=== PATIENT | male | born 1955 | race Caucasian/White ===

== ENCOUNTER 2021-07-26 16:00 | Outpatient (REF) | payer MEDICARE, OTHER, SELFPAY ==
--- NOTE | ~2021-07-26 | US_ITS ---
EXAMINATION: US RETROPERITONEAL LIMITED (RENAL ONLY) CLINICAL INFORMATION: Personal history of urinary calculi. COMPARISON: Renal ultrasound 11/27/2018 and 12/24/2017. TECHNIQUE: Real-time imaging of the kidneys. FINDINGS: RIGHT KIDNEY: 12.0 x 6.0 x 5.0 cm (SAG x AP x TRV). The kidney is normal in size, contour, and echogenicity. Renal cortical thickness is normal. No renal calculi or hydronephrosis. Mid pole simple cyst measures 1.8 cm in greatest dimension, no further imaging recommended. LEFT KIDNEY: 11.4 x 4.0 x 6.0 cm (SAG x AP x TRV). The kidney is normal in size, contour, and echogenicity. Renal cortical thickness is normal. No calculi or focal parenchymal lesions. No hydronephrosis. US/US renal BI IMPRESSION: No renal calculi are appreciated. Simple cyst right kidney, no further imaging follow-up recommended.
== END 2021-07-26 16:01 | disposition home or self-care (01) ==
LOC: HO.US 16:00
PROVIDERS: PCP Internal Medicine; Visit Provider Urology
DX: Z87.442 Personal history of urinary calculi (principal)
CPT/HCPCS: 76775

== ENCOUNTER 2022-02-02 14:26 | Outpatient (AMB) | payer MEDICARE, OTHER, SELFPAY ==
--- NOTE | 2022-02-02 10:56 | MHC.OFFVIS ---
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 He is seen for the following urologic conditions - lower urinary tract symptoms - renal cyst Lower urinary tract symptoms Currently on terazosin 5 mg Does notice some weakness of stream toward the end of the day Low PVR Prior medications include Flomax PSA 06/23 1.9 Plan repeat PSA and bladder ultrasound Trial 10 mg terazosin Renal cyst Prior stable ultrasound 1.9 [facility] Medical History History of renal calculi Surgical History History of cholecystectomy History of lithotripsy Review of Systems Const Denies chills and Denies fever(s) Card Reports no additional complaints and Denies syncope Resp Denies cough GI Denies abdominal pain and Denies heartburn Reports as per HPI and Denies change in libido Neuro Denies syncope Psych Denies change in libido Endo Denies change in libido Physical Exam Const General: cooperative, healthy appearing, comfortable and no acute distress Orientation/consciousness: patient oriented x3 HEENT Face and sinus: Yes normal facial exam Mouth: moist mucous membranes Neck Neck: Yes normal visual inspection, Yes full ROM and Yes trachea midline Chest Chest palpation & inspection: normal inspection of the chest Resp Effort & Inspection: normal respiratory effort, able to speak in complete sentences and no respiratory distress GI Inspection: Yes normal to inspection Back/Spine/Pelvis Cervical Spine: normal cervical lordosis Thoracic/Lumbar Spine: thoracic and lumbar spine normal to inspection Skin General skin exam: no rashes or lesions noted Neuro General: patient oriented x3, gait normal, tone normal and moves all extremities Extrem General: Yes normal to inspection and Yes capillary refill normal Results AMB Urinalysis, Automated UA Leukoctes 0 Raoul/uL Last Edit by KRISTIAN Saleem on 02/02/22 14:43 UA Nitrite Negative Last Edit by KRISTIAN Saleem on 02/02/22 14:43 UA Urobilinogen 0.2 mg/dL Last Edit by Isabel Contreras, RMA on 02/02/22 14:43 UA Protein 0 mg/dL Last Edit by Isabel Contreras, A on 02/02/22 14:43 UA pH 6.0 Last Edit by Isabel Contreras, RMA on 02/02/22 14:43 UA Blood 0 Bob/uL Last Edit by Isabel Contreras, RMA on 02/02/22 14:43 UA Specific [place] 1.025 Last Edit by Isabel Contreras, RMA on 02/02/22 14:43 UA Ketone Negative Last Edit by Isabel Contreras, RMA on 02/02/22 14:43 UA Bilirubin 0 mg/dL Last Edit by Isabel Contreras, RMA on 02/02/22 14:43 UA Glucose 0 mg/dL Last Edit by Isabel Contreras, A on 02/02/22 14:43 Results Reviewed Results Reviewed: Laboratory Last Values Urine pH (Auto) 6.0 02/02/22 14:32 Specific [place] (Auto) 1.025 02/02/22 14:32 Urine Protein (Auto) 0 mg/dL 02/02/22 14:32 Glucose (UA)(Auto) 0 mg/dL 02/02/22 14:32 Urine Ketones (Auto) Negative 02/02/22 14:32 Urine Blood (Auto) 0 Bob/uL 02/02/22 14:32 Urine Nitrite (Auto) Negative 02/02/22 14:32 Urine Bilirubin (Auto) 0 mg/dL 02/02/22 14:32 Urine Urobilinogen (Auto) 0.2 mg/dL 02/02/22 14:32 Leukocyte Esterase (Auto) 0 Raoul/uL 02/02/22 14:32 Assessment & Plan Assessment & Plan (1) Bladder outlet obstruction: Code(s): N32.0 - Bladder-neck obstruction (2) Renal cyst: Code(s): N28.1 - Cyst of kidney, acquired Plan 12m f/u Orders: Orders US renal BI 1 Year N28.1 - Cyst of kidney, acquired AMB Urinalysis Automated 02/02/22 Z13.9 - Encounter for screening, unspecified Medications: New terazosin 5 mg PO BEDTIME 90 caps 3RF 90 days N32.0 - Bladder-neck obstruction Patient Instructions: Imaging studies, laboratory and physical exam results were discussed and reviewed in detail. No major barriers to patient understanding were identified. An opportunity to ask questions regarding the treatment plan was provided. All questions were answered. The patient expressed understanding and agreement with the above treatment plan. The patient is aware they should contact our office by phone for worsening of their current condition or the appearance of new urologic symptoms. Compliance is encouraged with any medications and followup testing that is ordered. It is a privilege to participate in the urologic care of your patient. If you have any questions or concerns regarding treatment for the above conditions, or other urologic issues, please do not hesitate to contact me. The office telephone contact is [phone]. This note is constructed using voice recognition software. While every effort has been made to ensure accuracy stamp clerk errors may have been included. Yours sincerely, Dr Dominik Chambers MD, [facility] - Urology Providers of Expert, Compassionate Care for the Genitourinary System Coding Level of Care Code Est Pt Level 4 (95726) Diagnoses Bladder outlet obstruction N32.0 Renal cyst N28.1
== END 2022-02-02 14:53 | disposition home or self-care (01) ==
LOC: HO.HUSH 14:26
PROVIDERS: PCP Internal Medicine; Visit Provider Urology
DX: N32.0 Bladder-neck obstruction (principal); N28.1 Cyst of kidney, acquired
CPT/HCPCS: 99499

== ENCOUNTER 2023-01-25 14:53 | Outpatient (REF) | payer MEDICARE, OTHER, SELFPAY ==
--- NOTE | ~2023-01-25 | US_ITS ---
EXAMINATION: US RETROPERITONEAL LIMITED (RENAL ONLY) CLINICAL INFORMATION: Cyst of kidney, acquired. COMPARISON: Renal ultrasound 07/26/2021 and 11/27/2018. X-ray KUB 11/10/2014. TECHNIQUE: Real-time imaging of the kidneys. FINDINGS: RIGHT KIDNEY: 12.4 x 5.1 x 6.6 cm (SAG x AP x TRV). The kidney is normal in size, contour, and echogenicity. Renal cortical thickness is normal. No calculi or focal parenchymal lesions. No hydronephrosis. LEFT KIDNEY: 10.5 x 5.1 x 5.2 cm (SAG x AP x TRV). The kidney is normal in size, contour, and echogenicity. Renal cortical thickness is normal. No calculi or focal parenchymal lesions. No hydronephrosis. US/US renal BI IMPRESSION: No cystic focus right kidney on the current study. Limited imaging due to body habitus. No focal abnormality..
== END 2023-01-25 14:54 | disposition home or self-care (01) ==
LOC: HO.US 14:53
PROVIDERS: PCP Internal Medicine; Visit Provider Urology
DX: N28.1 Cyst of kidney, acquired (principal)
CPT/HCPCS: 76775

== ENCOUNTER 2023-03-12 13:01 | Outpatient (AMB) | payer MEDICARE, OTHER, SELFPAY ==
--- NOTE | 2023-03-12 13:10 | A.OFFVIS_ITS ---
Intake Intake Visit Reasons: 1Y US(set) Intake Note: Patient is present for Follow Up Ultrasound Urology Med: Terazosin, Tamsulosin Antibiotic Allergy: None Blood Thinner: Apixaban(Eliquis) Pharmacy: [facility] Allergies No Known Allergies [No Known Allergies*] Allergy (Verified 03/12/23 13:10) Medication List - Last Reconciled 03/12/23 by Dominik Chambers MD apixaban 5 mg PO BID chlorhexidine gluconate 0.12% mL PO DIRECTED metoprolol succinate ER 100 mg PO DAILY tamsulosin 0.8 mg (2 x 0.4 mg) PO BEDTIME 30 days terazosin 5 mg PO BEDTIME 90 days terazosin 10 mg PO BEDTIME 30 days HPI HPI Comments History of Present Illness Details Arvin is a pleasant male. He is seen for the following urologic conditions - lower urinary tract symptoms - renal cyst Lower urinary tract symptoms Currently on terazosin 5 mg Does notice some weakness of stream toward the end of the day Low PVR Prior medications include Flomax PSA 06/23 1.9 Plan repeat PSA and bladder ultrasound Trial 10 mg terazosin Renal cyst Prior stable ultrasound 1.9 [facility] Medical History History of renal calculi Surgical History History of cholecystectomy History of lithotripsy Review of Systems Const Denies chills and Denies fever(s) Card Reports no additional complaints and Denies syncope Resp Denies cough GI Denies abdominal pain and Denies heartburn Reports as per HPI and Denies change in libido Neuro Denies syncope Psych Denies change in libido Endo Denies change in libido Physical Exam Const General: cooperative, healthy appearing, comfortable and no acute distress Orientation/consciousness: patient oriented x3 HEENT Face and sinus: Yes normal facial exam Mouth: moist mucous membranes Neck Neck: Yes normal visual inspection, Yes full ROM and Yes trachea midline Chest Chest palpation & inspection: normal inspection of the chest Resp Effort & Inspection: normal respiratory effort, able to speak in complete sentences and no respiratory distress GI Inspection: Yes normal to inspection Back/Spine/Pelvis Cervical Spine: normal cervical lordosis Thoracic/Lumbar Spine: thoracic and lumbar spine normal to inspection Skin General skin exam: no rashes or lesions noted Neuro General: patient oriented x3, gait normal, tone normal and moves all extremities Extrem General: Yes normal to inspection and Yes capillary refill normal Assessment & Plan Assessment & Plan (1) Bladder outlet obstruction: Code(s): N32.0 - Bladder-neck obstruction Plan Six month follow-up ultrasound bladder with PSA Orders: Orders Prostate Specific Antigen 6 Months N32.0 - Bladder-neck obstruction US bladder Today N32.0 - Bladder-neck obstruction, R39.12 - Poor urinary stream Medications: New terazosin 10 mg PO BEDTIME 30 days 30 caps 0RF N13.8 - Other obstructive and reflux uropathy, N32.0 - Bladder-neck obstruction, N40.1 - Benign prostatic hyperplasia with lower urinary tract symptoms Discontinued tamsulosin Discontinued Reason: Patient no longer taking 0.8 mg (2 x 0.4 mg) PO BEDTIME 30 days 60 caps 6RF Patient Instructions: Imaging studies, laboratory and physical exam results were discussed and reviewed in detail. No major barriers to patient understanding were identified. An opportunity to ask questions regarding the treatment plan was provided. All questions were answered. The patient expressed understanding and agreement with the above treatment plan. The patient is aware they should contact our office by phone for worsening of their current condition or the appearance of new urologic symptoms. Compliance is encouraged with any medications and followup testing that is ordered. It is a privilege to participate in the urologic care of your patient. If you have any questions or concerns regarding treatment for the above conditions, or other urologic issues, please do not hesitate to contact me. The office telephone contact is [phone]. This note is constructed using voice recognition software. While every effort h as been made to ensure accuracy dining service supervisor errors may have been included. Yours sincerely, Dr Dominik Chambers MD, [facility] - Urology Providers of Expert, Compassionate Care for the Genitourinary System Coding Level of Care Code Tele Est Pt Level 4 (31518) Diagnoses Bladder outlet obstruction N32.0
== END 2023-03-12 13:43 | disposition home or self-care (01) ==
PROVIDERS: Visit Provider Urology
DX: N32.0 Bladder-neck obstruction (principal)
CPT/HCPCS: 99214

== ENCOUNTER → 2023-03-12 13:01 | Outpatient (BNVA) | payer MEDICARE, OTHER, SELFPAY | PROVIDERS: Visit Provider Urology ==

== ENCOUNTER 2023-09-02 10:39 | Outpatient (REF) | payer MEDICARE, OTHER, SELFPAY ==
--- NOTE | ~2023-09-02 | US_ITS ---
EXAMINATION: US PELVIS LIMITED (BLADDER) CLINICAL INFORMATION: Poor urinary stream. COMPARISON: Renal ultrasound 01/25/2023 and 07/26/2021. X-ray abdomen KUB 11/10/2014. TECHNIQUE: Real-time imaging of the bladder. Limited visualization due to bowel gas. FINDINGS: BLADDER: Well distended. Bilateral ureteral jets are demonstrated. Prevoid bladder volume is 531 mL. Postvoid bladder volume is 506 mL. Mild diffuse irregularity of the bladder wall with possible trabeculation. ADDITIONAL FINDINGS: Enlarged prostate with volume 66.6 mL. A 4.2 x 2.2 x 4.5 cm bladder diverticulum. Small right diverticulum measures 0.7 x 0.5 x 0.7 cm. US/US bladder IMPRESSION: 1. Enlarged prostate with volume 66.6 mL. 2. Mild diffuse irregularity of the bladder wall with possible trabeculation. 3. A 4.2 x 2.2 x 4.5 cm bladder diverticulum. Small right diverticulum measures 0.7 x 0.5 x 0.7 cm.
== END 2023-09-02 10:40 | disposition home or self-care (01) ==
LOC: HO.US 10:39
PROVIDERS: PCP Internal Medicine; Visit Provider Urology
DX: R39.12 Poor urinary stream (principal); N32.0 Bladder-neck obstruction
CPT/HCPCS: 76857

== ENCOUNTER 2023-09-09 10:09 | Outpatient (REF) | payer MEDICARE, OTHER, SELFPAY | END 2023-09-09 10:10 | disposition home or self-care (01) | LOC: HO.WFDLDS 10:09 | PROVIDERS: Visit Provider Urology | DX: N32.0 Bladder-neck obstruction (principal); Z12.5 Encounter for screening for malignant neoplasm of prostate | CPT/HCPCS: 36415; 84153 ==

== ENCOUNTER 2023-09-11 14:33 | Outpatient (AMB) | payer MEDICARE, OTHER, SELFPAY ==
--- NOTE | 2023-09-11 14:35 | A.OFFVIS_ITS ---
Intake Intake Visit Reasons: 6M PSA/US(set) Intake Note: Patient is Present for Follow Up PSA US Urology Medication: Terazosin Antibiotic Allergies: None Blood Thinners:Eliquis Allergies No Known Allergies [No Known Allergies*] Allergy (Verified 03/12/23 13:10) HPI HPI Comments History of Present Illness Details Arvin is a pleasant male. He is seen for the following urologic conditions - lower urinary tract symptoms - bladder dysfunction - renal cyst Telemedicine Evaluation 15 min Consultation [employer] Video attempted Discussed results Has bladder diverticula with incomplete emptying Has noticed improvement on terazosin 10 mg Suggest double voiding Six-month follow-up PVR in office May need outlet procedure with opening of a diverticulum surgically at some point Lower urinary tract symptoms Currently on terazosin 10 mg Does notice some weakness of stream toward the end of the day Low PVR Prior medications include Flomax PSA 06/23 1.9, 09/28 1.4 Imaging - 08/28 Bladder US diverticular with incomplete emptying Renal cyst Prior stable ultrasound 1.9 PFSH Medical History History of renal calculi Surgical History History of cholecystectomy History of lithotripsy Review of Systems Const All systems reviewed & are unremarkable except as noted in HPI and below Reports no additional complaints Resp Reports no additional complaints GI Reports no additional complaints Reports as per HPI Musc Reports no additional complaints Physical Exam Telemedicine evaluation Appropriate responses Regular breathing rate and rhythm HEENT Head: Yes normal to inspection Ears: hearing grossly normal bilaterally Eyes General: appearance normal, both eyes and all related structures Neck Neck: Yes normal visual inspection Chest Chest palpation & inspection: normal inspection of the chest Resp Effort & Inspection: normal respiratory effort and able to speak in complete sentences Assessment & Plan Assessment & Plan (1) Bladder outlet obstruction: Code(s): N32.0 - Bladder-neck obstruction (2) Renal cyst: Code(s): N28.1 - Cyst of kidney, acquired Plan Six-month follow-up PVR orifice Medications: Refilled terazosin 10 mg PO BEDTIME 90 days 90 caps 1RF N13.8 - Other obstructive and reflux uropathy, N32.0 - Bladder-neck obstruction, N40.1 - Benign prostatic hyperplasia with lower urinary tract symptoms Patient Instructions: Imaging studies, laboratory and physical exam results were discussed and reviewed in detail. No major barriers to patient understanding were identified. An opportunity to ask questions regarding the treatment plan was provided. All questions were answered. The patient expressed understanding and agreement with the above treatment plan. The patient is aware they should contact our office by phone for worsening of their current condition or the appearance of new urologic symptoms. Compliance is encouraged with any medications and followup testing that is ordered. It is a privilege to participate in the urologic care of your patient. If you have any questions or concerns regarding treatment for the above conditions, or other urologic issues, please do not hesitate to contact me. The office telephone contact is [phone]. This note is constructed using voice recognition software. While every effort has been made to ensure accuracy secondary social studies teacher errors may have been included. Yours sincerely, Dr Dominik Chambers MD, [facility] - Urology Providers of Expert, Compassionate Care for the Genitourinary System Telehealth Telehealth Location of provider rendering services: practice address Location of patient: address on file Patient Identification confirmed using: Name, : Yes Telehealth method: video Patient verbally consented to treatment: Yes Patient verbally consented to billing insurance company: Yes Patient informed of any privacy concerns related to visit: Yes Coding Level of Care Code Tele Est Pt Level 4 (64026) Diagnoses Bladder outlet obstruction N32.0 Renal cyst N28.1
== END 2023-09-11 15:23 | disposition home or self-care (01) ==
LOC: HO.HUSH 14:33
PROVIDERS: PCP Internal Medicine; Visit Provider Urology
DX: N32.0 Bladder-neck obstruction (principal); N28.1 Cyst of kidney, acquired
CPT/HCPCS: 99214

== ENCOUNTER → 2023-09-11 14:33 | Outpatient (BNVA) | payer MEDICARE, OTHER, SELFPAY | PROVIDERS: PCP Internal Medicine; Visit Provider Urology ==

== ENCOUNTER 2024-03-17 13:42 | Outpatient (AMB) | payer MEDICARE, OTHER, SELFPAY ==
--- NOTE | 2024-03-17 13:46 | MHC.OFFVIS ---
Intake Visit Reasons: 6M Follow Up-PVR Intake Note: Patient presents to the office today for a 6 month follow up/PVR Urology Medication: Terazosin Antibiotic Allergies: None Blood Thinners:Eliquis PVR:29mL Allergies No Known Allergies [No Known Allergies*] Allergy (Verified 03/17/24 13:46) Medication List - Last Reconciled 03/17/24 by Dominik Chambers MD apixaban 5 mg PO BID chlorhexidine gluconate 0.12% mL PO DIRECTED metoprolol succinate ER 100 mg PO DAILY terazosin 5 mg PO BEDTIME 90 days terazosin 10 mg PO BEDTIME 90 days HPI Comments Details: Arvin is a pleasant male. He is seen for the following urologic conditions - lower urinary tract symptoms - bladder dysfunction - renal cyst Stable on current medications Bladder diverticula with incomplete emptying Has noticed improvement on terazosin 10 mg with double voiding Here for six-month follow-up PVR PVR 30 cc Remain in surveillance Lower urinary tract symptoms Currently on terazosin 10 mg Does notice some weakness of stream toward the end of the day Low PVR Prior medications include Flomax PSA 06/23 1.9, 09/28 1.4 Imaging - 08/28 Bladder US diverticular with incomplete emptying Renal cyst Prior stable ultrasound 1.9 PFSH Medical History History of renal calculi Surgical History History of lithotripsy History of cholecystectomy Review of Systems Const Denies chills and Denies fever(s) Card Reports no additional complaints and Denies syncope Resp Denies cough GI Denies abdominal pain and Denies heartburn Reports as per HPI and Denies change in libido Neuro Denies syncope Psych Denies change in libido Endo Denies change in libido Physical Exam Const General: cooperative, healthy appearing, comfortable and no acute distress Orientation/consciousness: patient oriented x3 HEENT Face and sinus: Yes normal facial exam Mouth: moist mucous membranes Neck Neck: Yes normal visual inspection, Yes full ROM and Yes trachea midline Chest Chest palpation & inspection: normal inspection of the chest Resp Effort & Inspection: normal respiratory effort, able to speak in complete sentences and no respiratory distress GI Inspection: Yes normal to inspection Back/Spine/Pelvis Cervical Spine: normal cervical lordosis Thoracic/Lumbar Spine: thoracic and lumbar spine normal to inspection Skin General skin exam: no rashes or lesions noted Neuro General: patient oriented x3, gait normal, tone normal and moves all extremities Extrem General: Yes normal to inspection and Yes capillary refill normal Office Procedures Post Void Residual Post Residual Void Post Void Residual (PVR): 29 14060-Geet Void Residual by ultrasound Results AMB Urinalysis, Automated UA Leukoctes 0 Raoul/uL Last Edit by Ellen Esteban CMA on 03/17/24 13:57 UA Nitrite Negative Last Edit by Ellen Esteban CMA on 03/17/24 13:57 UA Urobilinogen 0.2 mg/dL Last Edit by Ellen Esteban CMA on 03/17/24 13:57 UA Protein 15 mg/dL Last Edit by Ellen Esteban CMA on 03/17/24 13:57 UA pH 5.5 Last Edit by Ellen Esteban CMA on 03/17/24 13:57 UA Blood 0 Bob/uL Last Edit by Ellen Esteban CMA on 03/17/24 13:57 UA Specific [place] 1.020 Last Edit by Ellen Esteban CMA on 03/17/24 13:57 UA Ketone Negative Last Edit by Ellen Esteban CMA on 03/17/24 13:57 UA Bilirubin 0 mg/dL Last Edit by Ellen Esteban CMA on 03/17/24 13:57 UA Glucose 100 mg/dL Last Edit by Ellen Esteban CMA on 03/17/24 13:57 Results Reviewed Results Reviewed: Laboratory Last Values Urine pH (Auto) 5.5 03/17/24 13:50 Specific [place] (Auto) 1.020 03/17/24 13:50 Urine Protein (Auto) 15 mg/dL 03/17/24 13:50 Glucose (UA)(Auto) 100 mg/dL 03/17/24 13:50 Urine Ketones (Auto) Negative 03/17/24 13:50 Urine Blood (Auto) 0 Bob/uL 03/17/24 13:50 Urine Nitrite (Auto) Negative 03/17/24 13:50 Urine Bilirubin (Auto) 0 mg/dL 03/17/24 13:50 Urine Urobilinogen (Auto) 0.2 mg/dL 03/17/24 13:50 Leukocyte Esterase (Auto) 0 Raoul/uL 03/17/24 13:50 Assessment & Plan Assessment & Plan (1) Bladder outlet obstruction: Code(s): N32.0 - Bladder-neck obstruction Category: Medical (2) Renal cyst: Code(s): N28.1 - Cyst of kidney, acquired Category: Medical Plan Twelve month follow-up Orders: Orders AMB Urinalysis Automated Today Z13.9 - Encounter for screening, unspecified AMB Post Void Residual by ultrasound Today N32.0 - Bladder-neck obstruction Patient Instructions: Imaging studies, laboratory and physical exam results were discussed and reviewed in detail. No major barriers to patient understanding were identified. An opportunity to ask questions regarding the treatment plan was provided. All questions were answered. The patient expressed understanding and agreement with the above treatment plan. The patient is aware they should contact our office by phone for worsening of their current condition or the appearance of new urologic symptoms. Compliance is encouraged with any medications and followup testing that is ordered. It is a privilege to participate in the urologic care of your patient. If you have any questions or concerns regarding treatment for the above conditions, or other urologic issues, please do not hesitate to contact me. The office telephone contact is [phone]. This note is constructed using voice recognition software. While every effort has been made to ensure accuracy office machine embossograph operator errors may have been included. Yours sincerely, Dr Dominik Chambers MD, [facility] - Urology Providers of Expert, Compassionate Care for the Genitourinary System Coding Level of Care Code Est Pt Level 3 (82533) Diagnoses Bladder outlet obstruction N32.0 Renal cyst N28.1 CPT Codes Post Residual Void - PVR CPT Code: 33517-Npxh Void Residual by ultrasound ([id number])
== END 2024-03-17 14:36 | disposition home or self-care (01) ==
PROVIDERS: PCP Internal Medicine; Visit Provider Urology
DX: N32.0 Bladder-neck obstruction (principal); N28.1 Cyst of kidney, acquired; Z13.9 Encounter for screening, unspecified
CPT/HCPCS: 99213

== ENCOUNTER → 2024-03-17 13:42 | Outpatient (BNVA) | payer MEDICARE, OTHER, SELFPAY | PROVIDERS: PCP Internal Medicine; Visit Provider Urology | DX: N32.0 Bladder-neck obstruction (principal); N28.1 Cyst of kidney, acquired | CPT/HCPCS: 51798; 81003; 99212 ==

== ENCOUNTER 2025-03-19 14:30 | Outpatient (AMB) | payer MEDICARE, OTHER, SELFPAY ==
--- NOTE | 2025-03-19 14:30 | MHC.OFFVIS ---
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 He is seen for the following urologic conditions - lower urinary tract symptoms - bladder dysfunction - renal cyst Yearly follow-up Did not empty diverticula today Needs to practice double voiding UA normal Bladder diverticula with incomplete emptying Has noticed improvement on terazosin 10 mg with double voiding Twelve month follow-up PVR and renal ultrasound Lower urinary tract symptoms Currently on terazosin 10 mg Does notice some weakness of stream toward the end of the day Low PVR Prior medications include Flomax PSA 06/23 1.9, 09/28 1.4 Imaging - 08/28 Bladder US diverticular with incomplete emptying Renal cyst Prior stable ultrasound 1.9 PFSH Medical History History of renal calculi Surgical History History of lithotripsy History of cholecystectomy Review of Systems Const Denies chills and Denies fever(s) Card Reports no additional complaints and Denies syncope Resp Denies cough GI Denies abdominal pain and Denies heartburn Reports as per HPI and Denies change in libido Neuro Denies syncope Psych Denies change in libido Endo Denies change in libido Physical Exam Const General: cooperative, healthy appearing, comfortable and no acute distress Orientation/consciousness: patient oriented x3 HEENT Face and sinus: Yes normal facial exam Mouth: moist mucous membranes Neck Neck: Yes normal visual inspection, Yes full ROM and Yes trachea midline Chest Chest palpation & inspection: normal inspection of the chest Resp Effort & Inspection: normal respiratory effort, able to speak in complete sentences and no respiratory distress GI Inspection: Yes normal to inspection Back/Spine/Pelvis Cervical Spine: normal cervical lordosis Thoracic/Lumbar Spine: thoracic and lumbar spine normal to inspection Skin General skin exam: no rashes or lesions noted Neuro General: patient oriented x3, gait normal, tone normal and moves all extremities Extrem General: Yes normal to inspection and Yes capillary refill normal Assessment & Plan Assessment & Plan (1) Bladder outlet obstruction: Code(s): N32.0 - Bladder-neck obstruction Category: Medical (2) Renal cyst: Code(s): N28.1 - Cyst of kidney, acquired Category: Medical Plan Twelve month follow-up renal ultrasound Orders: Orders US renal BI 12 Months N28.1 - Cyst of kidney, acquired Medications: Refilled terazosin 10 mg PO BEDTIME 90 caps 3RF 90 days N13.8 - Other obstructive and reflux uropathy, N32.0 - Bladder-neck obstruction, N40.1 - Benign prostatic hyperplasia with lower urinary tract symptoms Patient Instructions: This note is constructed using voice recognition software. While every effort has been made to ensure accuracy machine maintenance errors may have been included. Imaging studies, laboratory and physical exam results were discussed and reviewed in detail. No major barriers to patient understanding were identified. An opportunity to ask questions regarding the treatment plan was provided. All questions were answered. The patient expressed understanding and agreement with the above treatment plan. The patient is aware they should contact our office by phone for worsening of their current condition or the appearance of new urologic symptoms. Compliance is encouraged with any medications and followup testing that is ordered. It is a privilege to participate in the urologic care of your patient. If you have any questions or concerns regarding treatment for the above conditions, or other urologic issues, please do not hesitate to contact me. The office telephone contact is [phone]. Sincerely, Dr Dominik Chambers MD, [facility] - Urology Compassionate Specialist Care for the Genitourinary System Coding Level of Care Code Est Pt Level 4 (43399) Diagnoses Bladder outlet obstruction N32.0 Renal cyst N28.1
== END 2025-03-19 15:19 | disposition home or self-care (01) ==
LOC: HO.HUSH 14:31
PROVIDERS: PCP Internal Medicine; Visit Provider Urology
DX: N32.0 Bladder-neck obstruction (principal); N28.1 Cyst of kidney, acquired; Z13.9 Encounter for screening, unspecified
CPT/HCPCS: 99214

== ENCOUNTER → 2025-03-19 14:30 | Outpatient (BNVA) | payer MEDICARE, OTHER, SELFPAY | PROVIDERS: PCP Internal Medicine; Visit Provider Urology | DX: N32.0 Bladder-neck obstruction (principal); N28.1 Cyst of kidney, acquired | CPT/HCPCS: 51798; 81003; 99212 ==